=== PATIENT | female | born 1955 | race Caucasian/White ===

== ENCOUNTER 2016-10-06 18:34 | Outpatient (CLI) | payer OTHER | END 2016-10-06 23:00 | disposition home or self-care (01) | LOC: LAB SRH 18:34 | DX: Z01.818 Encounter for other preprocedural examination (principal); Z01.812 Encounter for preprocedural laboratory examination; M17.12 Unilateral primary osteoarthritis, left knee; R03.0 Elevated blood-pressure reading, without diagnosis of hypertension | CPT/HCPCS: 90047; 90074; 95059 ==

== ENCOUNTER 2017-01-13 08:56 | Outpatient (CLI) | payer OTHER ==
--- NOTE | 2017-01-13 09:38 | DIAGNOSTIC IMAGING REPORT ---
PROCEDURE: XR FOOT 3 VIEWS - RIGHT INDICATION: USPECIFIED SPRAIN OF RIGHT FOOT TECHNIQUE: Three views. COMPARISON: None. FINDINGS: Osteopenia. No fracture or dislocation. Mild second MTP joint degenerative changes. Large plantar calcaneal spur. Soft tissues are unremarkable. IMPRESSION: 1. Osteopenia 2. Second MTP joint degenerative changes 3. Large plantar calcaneal spur 4. Results discussed Dr. Chau
== END 2017-01-13 23:00 ==
LOC: XR SRH 08:56
DX: M85.871 Other specified disorders of bone density and structure, right ankle and foot (principal); M77.31 Calcaneal spur, right foot; M19.071 Primary osteoarthritis, right ankle and foot